=== PATIENT | female | born 1995 | race Hispanic/Latino ===

== ENCOUNTER 2020-04-29 14:27 | Emergency (ER) | payer OTHER ==
[~2020-04-29] VITALS: Ht 160 cm; Wt 83.9 kg
--- OUTSIDE RECORDS SUMMARY | 2020-04-29 19:22 | XMS ---
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 Sharon VISIT COUNT (12 MO.) [address] TOTAL 3 NOTE: Visits indicate total known visits. ED/UCC VISIT TRACKING (12 MO.) 04/29/2020 18:13 [facility] TYPE: Emergency DIAGNOSES: - 10 WKS PREG, VOMITING, STOMACH CRAMPING 04/29/2020 14:[address] [facility] TYPE: Emergency COMPLAINT: - VOMITING, 10 WKS RISA ACEVEDO @0270 04/24/2020 18:28 [facility] DIAGNOSES: - Nausea with vomiting, unspecified - Encounter for supervision of normal , unspecified, f - 9 WKS PREG, VOMITING, SENT BY INPATIENT VISIT TRACKING (12 MO.) No inpatient visits to display in this time frame [email or web address]
== END 2020-04-29 17:40 | disposition home or self-care (01) ==
LOC: ED 14:27
DX: Z53.21 Procedure and treatment not carried out due to patient leaving prior to being seen by health care provider (principal)

== ENCOUNTER 2020-11-20 10:17 | Inpatient (IN) | payer OTHER ==
[~2020-11-20] VITALS: Ht 160 cm; Wt 89.8 kg
--- NOTE | 2020-11-20 13:09 | PR ---
[facility] [address] [place], [place] [address] Signed Progress Notes IP Datetime Report Generated by CPN: 11/20/2020 13:09 PROGRESS NOTES: [id number] Impression: Normal Progression of Labor Procedures: Artificial ROM; Sterile Vag Exam Plan: Continue Present Management VITAL SIGNS: [id number] Vital Signs: Reviewed VS Notable Details: HTN, not severe EXAM: [id number] Dilatation: 3.0 Effacement: 75 Station: -2 Contractions: q 3 to 5 min MEMBRANES: [id number] ROM Note: labs drawn, amnisure Comments: Progressing. Will continue. FETUS A: [id number] FHR Baseline: 130 Variability: Moderate 6-25bpm Accelerations: 15X15 Decelerations: None FHR Category: Category I Presentation: Vertex Comments on Fetus A: No evidence of metabolic acidosis FETUS B: [id number] Signing Physician: Radha Lovelace MD Copies: ~ *Electronically Signed* 11/20/20 1309 RADHA LOVELACE MD PATIENT NAME: ISELA HARPER PROGRESS NOTE DATE OF : [birth year] PHYSICIAN: RADHA LOVELACE MD RPT #: [id number] REPORT IS CONFIDENTIAL AND NOT TO BE RELEASED WITHOUT AUTHORIZATION
--- NOTE | 2020-11-20 14:33 | PR ---
[facility] [address] [facility] [place], [place] [address] Signed Progress Notes IP Datetime Report Generated by CPN: 11/20/2020 14:33 PROGRESS NOTES: [id number] Impression: Normal Progression of Labor Other Impressions: hypotensive episode Procedures: Artificial ROM; Sterile Vag Exam Other Procedures: ephedrine IV Plan: Continue Present Management VITAL SIGNS: [id number] Vital Signs: Reviewed VS Notable Details: HTN, not severe EXAM: [id number] Dilatation: 3.0 Effacement: 75 Station: -2 Contractions: q 3 to 5 min MEMBRANES: [id number] ROM Note: labs drawn, amnisure Comments: FHTs are reassuring currently but will continue close observation given the change in baseline. FETUS A: [id number] FHR Baseline: 130 Variability: Moderate 6-25bpm Accelerations: 15X15 Decelerations: None FHR Category: Category I Presentation: Vertex Comments on Fetus A: No evidence of metabolic acidosis FETUS B: [id number] Signing Physician: Radha Lovelace MD Copies: ~ *Electronically Signed* 11/20/20 1433 RADHA LOVELACE MD PATIENT NAME: ISELA HARPER PROGRESS NOTE DATE OF : [birth year] PHYSICIAN: RADHA LOVELACE MD RPT #: [id number] REPORT IS CONFIDENTIAL AND NOT TO BE RELEASED WITHOUT AUTHORIZATION
--- NOTE | 2020-11-20 17:09 | PR ---
[facility] [address] [place], [place] [address] Signed Progress Notes IP Datetime Report Generated by CPN: 11/20/2020 17:09 PROGRESS NOTES: [id number] Impression: Reassuring Heart Rate Other Impressions: hypotensive episode Procedures: Intrauterine Pressure Catheter; Sterile Vag Exam Other Procedures: ephedrine IV Plan: Continue Present Management VITAL SIGNS: [id number] Vital Signs: Reviewed VS Notable Details: HTN, not severe EXAM: [id number] Dilatation: 4.0 Effacement: 75 Station: -2 Contractions: q 3 to 5 min MEMBRANES: [id number] ROM Note: labs drawn, amnisure Comments: Slow progress. Suspect contractions are inadequate. Will place IUPC and add pitocin if needed for augment. FETUS A: [id number] FHR Baseline: 130 Variability: Moderate 6-25bpm Accelerations: 15X15 Decelerations: None FHR Category: Category I Presentation: Vertex Comments on Fetus A: No evidence of metabolic acidosis FETUS B: [id number] Signing Physician: Radha Lovelace MD Copies: ~ *Electronically Signed* 11/20/20 1709 RADHA LOVELACE MD PATIENT NAME: ISELA HARPER PROGRESS NOTE DATE OF : [birth year] PHYSICIAN: RADHA LOVELACE MD RPT #: [id number] REPORT IS CONFIDENTIAL AND NOT TO BE RELEASED WITHOUT AUTHORIZATION
--- NOTE | 2020-11-21 00:30 | PR ---
[facility] [address] [place], [place] [address] Signed Progress Notes IP Datetime Report Generated by CPN: 11/21/2020 00:29 PROGRESS NOTES: [id number] Impression: Arrest of Dilatation/Descent Other Impressions: hypotensive episode Procedures: Sterile Vag Exam Other Procedures: ephedrine IV Plan: Continue Present Management VITAL SIGNS: [id number] Vital Signs: Reviewed VS Notable Details: HTN, not severe EXAM: [id number] Dilatation: 7.0 Effacement: 90 Station: -2 Contractions: q 3 to 5 min MEMBRANES: [id number] ROM Note: labs drawn, amnisure Comments: No change analyst last 3 hrs. Feel head is asynclitic. Will continue to change positions and increase pitocin as needed. FETUS A: [id number] FHR Baseline: 130 Variability: Moderate 6-25bpm Accelerations: 15X15 Decelerations: None FHR Category: Category I Presentation: Vertex Comments on Fetus A: No evidence of metabolic acidosis FETUS B: [id number] Signing Physician: Radha Lovelace MD Copies: ~ *Electronically Signed* 11/21/20 0029 RADHA LOVELACE MD PATIENT NAME: ISELA HARPER PROGRESS NOTE DATE OF : [birth year] PHYSICIAN: RADHA LOVELACE MD RPT #: [id number] REPORT IS CONFIDENTIAL AND NOT TO BE RELEASED WITHOUT AUTHORIZATION
--- NOTE | 2020-11-21 10:43 | PR ---
[facility] [address] [place], [place] [address] Signed Progress Notes IP Datetime Report Generated by CHARITY: 11/21/2020 10:43 PROGRESS NOTES: [id number] Impression: Arrest of Dilatation/Descent; Reassuring Heart Rate Other Impressions: hypotensive episode Procedures: Sterile Vag Exam Other Procedures: ephedrine IV Plan: Deliver- Section Informed Consent Obtain: Section Delivery; Risks, Benefits and Alternatives Discussed VITAL SIGNS: [id number] Vital Signs: Reviewed VS Notable Details: HTN, not severe EXAM: [id number] Dilatation: 9.5 Effacement: 100 Station: 0 Contractions: q 3 to 5 min MEMBRANES: [id number] ROM Note: labs drawn, amnisure Comments: No progress since approx 0315. Her contraction pattern is now adequate. I feel C/S delivery is indicated at this time for secondary arrest of dilation. PARQ done with patient. FETUS A: [id number] FHR Baseline: 130 Variability: Moderate 6-25bpm Accelerations: 15X15 Decelerations: None FHR Category: Category I Presentation: Vertex Comments on Fetus A: No evidence of metabolic acidosis FETUS B: [id number] Signing Physician: Radha Lovelace MD Copies: ~ *Electronically Signed* 11/21/20 1043 RADHA LOVELACE MD PATIENT NAME: ISELA HARPER PROGRESS NOTE DATE OF : 93 PHYSICIAN: RADHA LOVELACE MD RPT #: [id number] REPORT IS CONFIDENTIAL AND NOT TO BE RELEASED WITHOUT AUTHORIZATION
--- NOTE | 2020-11-21 17:48 | PR ---
[facility] [address] [place], [place] [address] Signed PP Progress Notes Datetime Report Generated by CHARITY: 11/21/2020 17:48 SUBJECTIVE: [id number] Pain: Within Normal Limits Pain Comments: c/o vertigo as well Nausea/Vomiting: Present Vital Signs: [id number] Vital Signs: Reviewed Notable Details: mild HTN EXAM: Ongoing Exam Comments: UO adequate but borderline IMPRESSION/PLAN/PROCEDURES: [id number] Other Impression: severe nausea _ vomiting Progress Notes: She has continued to have nausea and vomiting since delivery. She has received Reglan at 1333, promethazine at 1354, Compazine at 1436 and Zofran at 1548 with only short term improvement. She is now having vertigo and this may be helped with a scop patch and meclizine. She has a hx of THC use though denies heavy use. It is possible she has hyperemesis cannabinoid syndrome. Topical capsacin may be helpful. She has received a lot of fluid through her admission as she has appeared to be significantly dehydrated. Her UO is borderline but adequate. This will require continued close observation. There is no evidence of fluid overload at this time. Signing Physician: Radha Lovelace MD Copies: ~ *Electronically Signed* 11/21/20 5070 RADHA LOVELACE MD PATIENT NAME: ISELA HARPER PROGRESS NOTE DATE OF : 93 PHYSICIAN: RADHA LOVELACE MD RPT #: [id number] REPORT IS CONFIDENTIAL AND NOT TO BE RELEASED WITHOUT AUTHORIZATION
--- NOTE | 2020-11-22 08:57 | PR ---
[facility] [address] [facility] [place], [place] [address] Signed PP Progress Notes Datetime Report Generated by CPMurali: 11/22/2020 08:57 SUBJECTIVE: [id number] Pain: Within Normal Limits Pain Comments: c/o vertigo as well Nausea/Vomiting: Denies Flatus: No Vital Signs: [id number] Vital Signs: Reviewed; Within Normal Limits Notable Details: good, clear urine now as well EXAM: Ongoing Cardiovascular: Normal Respiratory: Normal Abdomen/Uterus: Abnormal Lochia: Normal Vulva/Perineum: Not Done Breasts: Not Done CVA Tenderness: Not Done Extremities: Normal Incision: Normal Progress: Abnormal Exam Comments: Abdomen with active BS. Fundus firm, NT @ U-2. H/H 9.7/28.4, WBC 15.4, plat 146k Chem panel normal IMPRESSION/PLAN/PROCEDURES: [id number] Impression: Normal Progression; Induced Hypertension Other Impression: severe nausea _ vomiting Other Plans: ambulate, shower Progress Notes: Much improved from last pm. No further nausea/vomiting. Tolerating po well. Her UO has significantly improved and is now clear. Signing Physician: Radha Lovelace MD Copies: ~ *Electronically Signed* 11/22/20 0857 RADHA LOVELACE MD PATIENT NAME: ISELA HARPER PROGRESS NOTE DATE OF : 93 PHYSICIAN: RADHA LOVELACE MD RPT #: [id number] REPORT IS CONFIDENTIAL AND NOT TO BE RELEASED WITHOUT AUTHORIZATION
--- NOTE | 2020-11-23 08:56 | PR ---
[facility] [address] [place], [place] [address] Signed PP Progress Notes Datetime Report Generated by CPMurali: 11/23/2020 08:56 SUBJECTIVE: [id number] Pain: Within Normal Limits Pain Comments: c/o vertigo as well Nausea/Vomiting: Denies Flatus: Yes Bowel Movement: Yes Vital Signs: [id number] Vital Signs: Reviewed; Within Normal Limits Notable Details: good, clear urine now as well EXAM: Ongoing Cardiovascular: Normal Respiratory: Normal Abdomen/Uterus: Abnormal Lochia: Normal Vulva/Perineum: Not Done Breasts: Not Done CVA Tenderness: Not Done Extremities: Normal Incision: Normal Progress: Abnormal Exam Comments: Abdomen with active BS. Fundus firm, NT @ U-2. IMPRESSION/PLAN/PROCEDURES: [id number] Impression: Normal Progression; Difficulties Other Impression: severe nausea _ vomiting Plan: Remove [place]; Discharge Other Plans: ambulate, shower Procedures: None Progress Notes: Doing very well. She has tried to breast feed but believes she will continue to bottle feed as baby seems to be doing well with this. She is ready for D/C. Signing Physician: Radha Lovelace MD Copies: ~ *Electronically Signed* 11/23/20 0856 RADHA LOVELACE MD PATIENT NAME: ISELA HARPER PROGRESS NOTE DATE OF : 93 PHYSICIAN: RADHA LOVELACE MD RPT #: [id number] REPORT IS CONFIDENTIAL AND NOT TO BE RELEASED WITHOUT AUTHORIZATION
--- NOTE | 2020-11-23 16:26 | OR ---
[facility] [address] [place], [place] [address] Signed DATE OF OPERATION: 11/21/2020 SURGEON: Ortega Lovelace MD INSPECTOR GLASS OR MIRROR: Shay. PREOPERATIVE DIAGNOSES: Term , preeclampsia without severe features, secondary arrest of dilation. POSTOPERATIVE DIAGNOSES: Term , preeclampsia without severe features, secondary arrest of dilation, delivered. PROCEDURE: Primary section with low segment transverse uterine incision. ANESTHESIA: Epidural. ESTIMATED BLOOD LOSS: 600 mL. DRAINS: Kwon catheter. INDICATIONS AND FINDINGS: The patient is a 25-year-old female, 1, para 0 admitted the day before in early active labor. She was also found to have preeclampsia without severe features. She made slow progress in her labor and reached about 9 cm at 3:00 a.m. on the . However subsequent to this, she never made any further progress and she could not push through her remaining cervix. She had received an epidural earlier in her labor. She was on Pitocin with adequate contractions and still had no change. The patient was consented for a primary section given the secondary arrest for over 6 hours. She was taken to the operating room where she was delivered of a little boy a via lower segment transverse uterine incision from the LOP position with Apgars of 9 and 9 and weight of 7 pounds 15 ounces. There was a nuchal cord x1, loose. The uterus, tubes, ovaries, and placenta were normal. DESCRIPTION OF PROCEDURE: Electronically Signed By: ORTEGA LOVELACE MD 11/23/20 1626 PATIENT NAME: ISELA HARPER OPERATIVE REPORT DATE OF : 93 REPORT #: [id number] PHYSICIAN: ORTEGA LOVELACE MD PCP: ORTEGA LOVELACE MD REPORT IS CONFIDENTIAL AND NOT TO BE RELEASED WITHOUT AUTHORIZATION [facility] [address] [place] [id number] Signed The patient was prepped and draped in the supine position. A Pfannenstiel skin incision was made and carried down through the fascia. The incision was extended laterally. The inferior and superior fascial flaps were then created. The muscles were bluntly divided and the peritoneum opened bluntly and the incision extended. The Yakov retractor was then placed. The uterine incision was made at the upper aspect of the peritoneal reflection. The baby was delivered with the above findings and handed off to the pediatric staff in attendance. The placenta was removed manually. Uterus was explored with a lap tape assuring no remaining fragments. The edges of the incision were identified and the uterus closed in 2 layers using 0 Monocryl. The first layer was a running locking stitch and second was a vertical imbricating stitch. A [id number] was required in the midportion for control of bleeding. The abdomen was then copiously irrigated and inspected. Bleeding points on the peritoneal edge were controlled with cautery. Good hemostasis was rendered. The retractor was removed. The peritoneum identified. An ACell graft was then laid over the lower segment to aid in healing. The peritoneum was then closed with a running suture of 3-0 Vicryl. The muscles were brought together with interrupted sutures of 0 Vicryl. Bleeding points were controlled with cautery. This layer was irrigated as well and good hemostasis was noted. ACell powder was sprinkled over the muscles to aid in healing. The fascia was then closed from each angle to the midline with a running suture of 0 Vicryl. The subcu tissue was irrigated and bleeding points controlled with cautery. The space was closed with interrupted sutures of 3-0 Vicryl. The skin was closed with pepper. All sponge and needle counts were correct. She tolerated the procedure well and was taken to the recovery room in good condition. Ortega Lovelace MD PJW/MODL /[id number] cc: Dr. Shay Copies: ~ Electronically Signed By: ORTEGA LOVELACE MD 11/23/20 1626 PATIENT NAME: ISELA HARPER OPERATIVE REPORT DATE OF : [birth year] REPORT #: [id number] PHYSICIAN: ORTEGA LOVELACE MD PCP: ORTEGA LOVELACE MD REPORT IS CONFIDENTIAL AND NOT TO BE RELEASED WITHOUT AUTHORIZATION
== END 2020-11-23 16:00 | disposition home or self-care (01) | DRG 788 ==
LOC: FBCO → FBC 12:43 → FBCO 11-28 08:09
PROVIDERS: ADMIT Obstetrics & Gynecology; ATTEND Obstetrics & Gynecology
PROC: 10907ZC Drainage of Amniotic Fluid, Therapeutic from Products of Conception, Via Natural or Artificial Opening (ICD-10-PCS; 2020-11-20)
PROC: 10H07YZ Insertion of Other Device into Products of Conception, Via Natural or Artificial Opening (ICD-10-PCS; 2020-11-20)
PROC: 00HU33Z Insertion of Infusion Device into Spinal Canal, Percutaneous Approach (ICD-10-PCS; 2020-11-20)
PROC: 3E0R3BZ Introduction of Anesthetic Agent into Spinal Canal, Percutaneous Approach (ICD-10-PCS; 2020-11-20)
PROC: 10D00Z1 Extraction of Products of Conception, Low, Open Approach (ICD-10-PCS; principal; 2020-11-21 11:00)
DX: O14.04 Mild to moderate pre-eclampsia, complicating childbirth (principal); Z37.0 Single live birth; Z20.822 Contact with and (suspected) exposure to COVID-19; O69.81X0 Labor and delivery complicated by cord around neck, without compression, not applicable or unspecified; O62.1 Secondary uterine inertia; O99.324 Drug use complicating childbirth; F12.90 Cannabis use, unspecified, uncomplicated; O28.2 Abnormal cytological finding on antenatal screening of mother; Z3A.38 38 weeks gestation of pregnancy; O99.824 Streptococcus B carrier state complicating childbirth; O99.214 Obesity complicating childbirth; E66.9 Obesity, unspecified; O99.344 Other mental disorders complicating childbirth; F41.9 Anxiety disorder, unspecified; F32.9 Major depressive disorder, single episode, unspecified; O99.52 Diseases of the respiratory system complicating childbirth; J45.20 Mild intermittent asthma, uncomplicated; Z87.891 Personal history of nicotine dependence; Z79.899 Other long term (current) drug therapy
CPT/HCPCS: 01961; 59025; 80053; 82565; 82570; 84112; 84156; 84450; 84520; 84550; 85025; 85027; 99213; A9270; J1644; J1885; J2250; J2274; J2405; J2540; J2550; J2590; J2765; J2795; J3010; J7121; U0003